=== PATIENT | male | born 1955 | race Caucasian/White ===

== ENCOUNTER → 2019-05-01 | Outpatient (CLI) | payer BC ==
--- NOTE | 2019-05-01 18:36 | Diagnostic Imaging Report ---
INDICATION: Localized swelling, mass or palpable abnormality along the forearm. EXAMINATION: Right upper extremity sonogram, limited, from 05/01/2019. FINDINGS: Grayscale and color Doppler ultrasound imaging at the site of palpable concern was performed along the forearm. On the images provided, there is a nonspecific heterogeneous but predominantly hypoechoic lesion measuring 1.4 x 1.5 x 0.7 cm in size. Given a radiologist is not present during imaging, it is unclear exactly the location of the abnormality. There is a focus of questioned calcification or other echogenicity within the lesion. MRI with and without contrast recommended. IMPRESSION: 1. Nonspecific abnormality along the forearm of uncertain etiology, please see above discussion and recommendations. Dictated by: Dictated on workstation # [id number]
== END ==
LOC: RAD 17:58
PROVIDERS: ATTEND Nurse Practitioner Family
DX: L98.8 Other specified disorders of the skin and subcutaneous tissue (principal); R22.31 Localized swelling, mass and lump, right upper limb
CPT/HCPCS: 76881

== ENCOUNTER → 2019-05-29 | Outpatient (CLI) | payer BC ==
[~2019-05-29] MED LIST: GADOBUTROL 15 MMOL/15 ML (GADAVIST) VIAL IV ONE
--- NOTE | 2019-05-29 10:47 | Diagnostic Imaging Report ---
PROCEDURE: MRI right upper extremity with and without contrast. TECHNIQUE: Multiplanar, multisequence pre and post contrast-enhanced MRI of the right upper extremity was accomplished. INDICATION: Lump on the dorsal aspect of the distal forearm. COMPARISON: None available. FINDINGS: A skin marker was placed on the site of palpable concern. This marker is located on the distal radial aspect of the dorsal aspect of the forearm. Deep to the marker is the muscle belly/myotendinous junction of the extensor pollicis brevis as it crosses over the second extensor compartment. There is no abnormal mass or fluid collection in this region. No pathologic enhancement. The musculature of the forearm is normal in bulk. The flexor and extensor tendons about the wrist appear normal. No abnormal mass effect on the median or ulnar nerves. This imaging is set up to evaluate the intrinsic wrist ligaments. No fracture or osteonecrosis. IMPRESSION: 1. The area of palpable concern corresponds to the normal myotendinous junction/muscle belly of the extensor pollicis longus as it crosses over the second extensor compartment. 2. No mass or cyst. Dictated by: Dictated on workstation # [id number]
== END ==
LOC: RAD 07:53
PROVIDERS: ATTEND Nurse Practitioner Family
DX: R22.31 Localized swelling, mass and lump, right upper limb (principal)
CPT/HCPCS: 73220

== ENCOUNTER 2019-06-30 20:37 | Outpatient (CLI) | payer BC | END 2019-07-01 05:30 | disposition home or self-care (01) | LOC: SLEEP 20:37 | PROVIDERS: ATTEND Internal Medicine Hematology & Oncology | DX: G47.33 Obstructive sleep apnea (adult) (pediatric) (principal) | CPT/HCPCS: 95810 ==

== ENCOUNTER 2019-07-15 14:53 | Outpatient (RCR) | payer BC ==
[2019-06-19 14:45] LABS: BASOPHILS % (AUTO) 0 % (0-10); EOSINOPHILS # (AUTO) 0.2 10^3/uL (0.0-0.3); EOSINOPHILS % (AUTO) 2 % (0-10); HEMATOCRIT 51 % (40-54); HEMOGLOBIN 18.2 G/DL (13.3-17.7); LYMPHOCYTES % (AUTO) 20 % (12-44); MEAN CORPUSCULAR HEMOGLOBIN 32 PG (25-34); MEAN CORPUSCULAR HGB CONC 36 G/DL (32-36); MEAN CORPUSCULAR VOLUME 90 FL (80-99); MEAN PLATELET VOLUME 9.5 FL (7.4-10.4); MONOCYTES # (AUTO) 0.9 X 10^3 (0.0-1.0); MONOCYTES % (AUTO) 9 % (0-12); NEUTROPHILS # (AUTO) 6.7 X 10^3 (1.8-7.8); NEUTROPHILS % (AUTO) 68 % (42-75); PLATELET COUNT 259 10^3/uL (130-400); RED CELL DISTRIBUTION WIDTH 12.6 % (10.0-14.5); WHITE BLOOD COUNT 9.8 10^3/uL (4.3-11.0)
[2019-06-19 15:09] LABS: BUN/CREATININE RATIO 17; CARBON DIOXIDE 23 MMOL/L (21-32); CHLORIDE 107 MMOL/L (98-107); CREATININE SERUM 0.98 MG/DL (0.60-1.30); SODIUM 139 MMOL/L (135-145)
[2019-06-19 15:10] LABS: ALANINE AMINOTRANSFERASE 28 U/L (0-55); ALBUMIN 4.2 GM/DL (3.2-4.5); ALKALINE PHOSPHATASE 81 U/L (40-136); BILIRUBIN,TOTAL 0.4 MG/DL (0.1-1.0); CALCIUM 9.1 MG/DL (8.5-10.1); GFR ESTIMATED > 60; GLUCOSE 158 MG/DL (70-105); TOTAL PROTEIN 7.3 GM/DL (6.4-8.2)
[2019-07-15 15:13] LABS: BASOPHILS # (AUTO) 0.1 10^3/uL (0.0-0.1); BASOPHILS % (AUTO) 1 % (0-10); EOSINOPHILS # (AUTO) 0.3 10^3/uL (0.0-0.3); EOSINOPHILS % (AUTO) 3 % (0-10); HEMATOCRIT 54 % (40-54); HEMOGLOBIN 18.9 G/DL (13.3-17.7); LYMPHOCYTES # (AUTO) 2.5 X 10^3 (1.0-4.0); LYMPHOCYTES % (AUTO) 24 % (12-44); MEAN CORPUSCULAR HEMOGLOBIN 31 PG (25-34); MEAN CORPUSCULAR HGB CONC 35 G/DL (32-36); MEAN CORPUSCULAR VOLUME 89 FL (80-99); MEAN PLATELET VOLUME 9.8 FL (7.4-10.4); MONOCYTES # (AUTO) 1.1 X 10^3 (0.0-1.0); MONOCYTES % (AUTO) 10 % (0-12); NEUTROPHILS # (AUTO) 6.4 X 10^3 (1.8-7.8); NEUTROPHILS % (AUTO) 63 % (42-75); PLATELET COUNT 266 10^3/uL (130-400); RED CELL DISTRIBUTION WIDTH 13.1 % (10.0-14.5); WHITE BLOOD COUNT 10.3 10^3/uL (4.3-11.0)
== END 2019-09-17 | disposition home or self-care (01) ==
LOC: ONC 14:53
PROVIDERS: ATTEND Internal Medicine Hematology & Oncology
DX: D58.2 Other hemoglobinopathies (principal); R06.83 Snoring
CPT/HCPCS: 36415; 80053; 82375; 83615; 85025; 99195; 99214